=== PATIENT | male | born 1930 | race Caucasian/White ===

== ENCOUNTER 2016-04-20 14:57 | Outpatient (CLI) | payer MEDICARE, OTHER | END 2016-04-20 14:58 | disposition home or self-care (01) | DX: R05 Cough (principal); R09.89 Other specified symptoms and signs involving the circulatory and respiratory systems ==

== ENCOUNTER 2016-12-06 11:50 | Day surgery (SDC) | payer MEDICARE, OTHER ==
[2016-12-06] MEDS ORDERED: LACTATED RINGERS 1,000 ML IV ONE (12:32)
[2016-12-06] MEDS ORDERED: LIDOCAINE-MPF 2% 5 ML VIAL IM ONE (13:43)
[2016-12-06] MEDS ORDERED: MIDAZOLAM 2 MG/2 ML VIAL IVP ONE (13:43)
[2016-12-06] MEDS ORDERED: fentaNYL 100 MCG/2 ML VIAL IVP ONE (13:43)
[2016-12-06] MEDS ORDERED: PROPOFOL 200 MG/20 ML VIAL IVP ONE (13:43)
[2016-12-06] MEDS ORDERED: BUPIVACAINE 0.5% PF 30 ML VIAL SUBQ ONE ×2 (13:49)
[2016-12-06 14:39] VITALS: BP 131/56
--- NOTE | 2016-12-06 14:47 | OPERATIVE REPORT ---
DATE OF SURGERY: 12/06/2016 00:00:00 PREOPERATIVE DIAGNOSIS: Right hand carpal tunnel syndrome. POSTOPERATIVE DIAGNOSIS: Right hand carpal tunnel syndrome. NAME OF PROCEDURE: Right carpal tunnel release. SURGEON: Matt Harrington MD ANESTHESIA: Local, MAC by Juan Green CRNA. INDICATIONS FOR SURGERY: The patient is an 86-year-old male with progressive carpal tunnel syndrome w ho has failed bracing and conservative treatment and now presents for surgical release. DESCRIPTION OF OPERATIVE PROCEDURE: The patient was taken to the operating room on a gurney where his hand and arm were sterilely prepped and draped in standard fashion. He had been given IV sedation, a nd once a timeout was performed after draping, the patient received 5 mL of 1% lidocaine and 5 mL of 0.25% Marcaine with epinephrine as a carpal tunnel and soft tissue block at the wrist. After a delay of a few minutes, the surgery progressed with a longitudinal incision in the palm in line with the 3r d webspace taken through skin and subcutaneous tissue directly down to the transverse carpal ligament . This ligament was divided at its distal extent to the superficial palmar arch and at its proximal e xtent ending at the distal flexion crease of the wrist. This afforded adequate exposure and decompres jose c of the tunnel. The area was flushed and irrigated and the skin closed with interrupted 4-0 nylon suture. Sterile dressings were applied. The patient was taken to recovery room in stable condition. ESTIMATED BLOOD LOSS: Minimal. COMPLICATIONS: None. SPONGE AND NEEDLE COUNTS: Correct. JOB #: [id number] EXT JOB #:[id number]
== END 2016-12-06 11:51 | disposition home or self-care (01) ==
LOC: SDS 11:50 → MERGE 13:00
PROVIDERS: ATTEND Orthopaedic Surgery
PROC: 01N50ZZ Release Median Nerve, Open Approach (ICD-10-PCS; principal; 2016-12-06 13:00)
DX: G56.01 Carpal tunnel syndrome, right upper limb (principal); K21.9 Gastro-esophageal reflux disease without esophagitis; Z87.891 Personal history of nicotine dependence; Z79.82 Long term (current) use of aspirin
CPT/HCPCS: 64721; J7120

== ENCOUNTER 2017-05-22 08:00 | Outpatient (CLI) | payer MEDICARE, OTHER ==
[2017-05-22 12:21] LABS: BASOPHILS % (AUTO) 0.6 %; EOSINOPHILS # (AUTO) 0.5 10^3/uL (0.0-0.7); EOSINOPHILS % (AUTO) 7.5 %; HGB - HEMOGLOBIN 12.3 g/dL (14.0-18.0); LYMPHOCYTES # (AUTO) 0.8 10^3/uL (1.5-3.5); LYMPHOCYTES % (AUTO) 12.7 %; MEAN CORPUSCULAR HEMOGLOBIN 30.6 pg (27.0-31.0); MEAN CORPUSCULAR HGB CONC 33.3 g/dL (32.0-36.0); MEAN CORPUSCULAR VOLUME 91.9 fL (80.0-94.0); MEAN PLATELET VOLUME 7.9 fL (7.4-11.4); MONOCYTES # (AUTO) 0.6 10^3/uL (0.0-1.0); MONOCYTES % (AUTO) 10.1 %; NEUTROPHILS # (AUTO) 4.3 10^3/uL (1.5-6.6); NEUTROPHILS % (AUTO) 69.1 %; PLT - PLATELET COUNT 242 10^3/uL (130-450); RED BLOOD COUNT 4.02 10^6/uL (4.70-6.10); RED CELL DISTRIBUTION WIDTH 13.6 % (12.0-15.0); WHITE BLOOD COUNT 6.3 x10^3/uL (4.8-10.8)
[2017-05-22 12:28] LABS: ALBUMIN 3.9 g/dL (3.2-5.5); ALBUMIN/GLOBULIN RATIO 1.2 (1.0-2.2); ALKALINE PHOSPHATASE 80 IU/L (42-121); ALT ALANINE AMINOTRANSFERASE 10 IU/L (10-60); AST ASPARTATE AMINOTRANSFERASE 16 IU/L (10-42); BILIRUBIN,TOTAL 0.8 mg/dL (0.2-1.0); BUN - BLOOD UREA NITROGEN 20 mg/dL (6-20); CALCIUM 8.8 mg/dL (8.5-10.3); CARBON DIOXIDE - CO2 26 mmol/L (21-32); CHLORIDE 106 mmol/L (101-111); CHOLESTEROL 163 mg/dL; CREATININE 1.1 mg/dL (0.6-1.2); GFR - MDRD 63 (>89); GLUCOSE 85 mg/dL (70-100); HDL CHOLESTEROL 54 mg/dL; LDL CHOLESTEROL,CALCULATED 98 mg/dL; LDL/HDL RATIO 1.8 (<3.6); SODIUM 142 mmol/L (135-145); TOTAL PROTEIN 7.1 g/dL (6.7-8.2); VLDL CHOLESTEROL 11 mg/dL
== END 2017-05-22 08:01 | disposition home or self-care (01) ==
LOC: LAB.R 08:00
PROVIDERS: ATTEND Internal Medicine
DX: E78.5 Hyperlipidemia, unspecified (principal); M19.90 Unspecified osteoarthritis, unspecified site; I10 Essential (primary) hypertension; Z79.899 Other long term (current) drug therapy
CPT/HCPCS: 80053; 80061; 83721; 85025

== ENCOUNTER 2017-06-02 08:00 | Outpatient (CLI) | payer MEDICARE, OTHER ==
[2017-06-02 12:51] LABS: MEAN RETIC VALUE 118.7; RED BLOOD COUNT 4.1 10^6/uL (4.70-6.10)
[2017-06-02 13:27] LABS: FERRITIN 12.9 ng/mL (23.9-336.2)
== END 2017-06-02 08:01 | disposition home or self-care (01) ==
LOC: LAB.R 08:00
PROVIDERS: ATTEND Internal Medicine
DX: D64.9 Anemia, unspecified (principal)
CPT/HCPCS: 82607; 82728; 83010; 85044; 86880

== ENCOUNTER 2017-06-09 09:26 | Outpatient (CLI) | payer MEDICARE, OTHER ==
--- NOTE | 2017-06-13 09:13 | Ultrasound Report ---
CAROTID DUPLEX: 06/09/2017 CLINICAL INDICATION: Cerebrovascular disease. TECHNIQUE: Real-time sonographic vascular imaging was performed by the derrick builder through the carotid arteries utilizing both color-flow and Doppler spectral analysis. Multiple graphic art sales representative static images were saved for review. RIGHT Vessel PSV cm/sec EDV cm/sec ICA/CCA RSV Ratio Degree of Stenosis Plaque Estimate % RCCA Prox 71.6 RCCA Dist 51 13 RECA 471 RT BULB 186 32 3.64 CHLOE Prox 218 41 1.27 CHLOE Mid 205 41 4.01 CHLOE Dist 142 22 2.78 RVA 54 RVA flow direction: Antegrade LEFT Vessel PSV cm/sec EDV cm/sec ICA/CCA RSV Ratio Degree of Stenosis Plaque Estimate % LCCA Prox 51 LCCA Dist 39 11 LECA 99 LFT BULB 75 18 1.92 LICA Prox 96 26 2.49 LICA Mid 154 21 3.94 LICA Dist 103 17 2.64 LVA 69 LVA flow direction: Antegrade Velocity criteria are extrapolated from diameter data as defined by the Society of Radiologists in Ultrasound Consensus Conference Radiology 2003; 229; 340-346. Degree of Stenosis % ICA PSV cm/sec ICA EDV cm/sec ICA/CCA PSV Ratio Plaque Estimate % Normal < 125 < 40 < 2.0 None <50 < 125 <40 < 2.0 < 50 50-69 125-130 40-100 2.0-4.0 >/=50 >/=70 but less than near occlusion > 230 > 100 > 4.0 >/=50 Near occlusion High, low or undetectable Variable Variable Visible Total occlusion Undetectable Not applicable Not applicable No detectable lumen FINDINGS RIGHT: There is extensive plaquing in the right carotid bifurcation, producing greater than 70% luminal diameter narrowing of the proximal right internal carotid artery by velocity criteria. LEFT: There is extensive plaquing in the left carotid bifurcation, producing 50- 70% luminal diameter narrowing of the mid left internal carotid artery by velocity criteria. The vertebral arteries demonstrate antegrade flow bilaterally. IMPRESSION: RIGHT WORSE THAN LEFT CAROTID PLAQUING, PRODUCING GREATER THAN 70% LUMINAL DIAMETER NARROWING OF THE RIGHT INTERNAL CAROTID ARTERY, AND 50-70% LUMINAL DIAMETER NARROWING OF THE LEFT INTERNAL CAROTID ARTERY. MTDD
== END 2017-06-09 09:27 | disposition home or self-care (01) ==
LOC: DI 09:26
PROVIDERS: ATTEND Internal Medicine
DX: I65.23 Occlusion and stenosis of bilateral carotid arteries (principal)
CPT/HCPCS: 93880

== ENCOUNTER 2017-09-05 07:54 | Outpatient (CLI) | payer MEDICARE, OTHER ==
--- NOTE | 2017-09-05 15:45 | MRI Report ---
EXAM: MRI LUMBAR SPINE WITHOUT CONTRAST EXAM DATE: 09/05/2017 08:35 AM. CLINICAL HISTORY: Lumbar spinal stenosis. Weakness. Lower extremity pain. Difficulty walking. COMPARISON: No prior MRI. TECHNIQUE: Multiplanar, multisequence T1-weighted and fluid-sensitive sequences of the lumbar spine f rom T12 to S1 without contrast. Other: None. FINDINGS: Spinal Cord: The conus terminates at T12. Unremarkable-appearing conus medullaris. Alignment: Slight degenerative L3 on L4 retrolisthesis. Bone Marrow: Five xma-zoy-lpxocxu lumbar vertebral bodies are assumed. No acute vertebral body height loss. Degenerative endplate signal changes are most evident at L2-L3 and L3-L4 levels. Numerous dege nerative Schmorl's nodes. Minimal chronic anterior vertebral body height loss at T12 and L1. Diffuse anterior degenerative marginal spurring, most prominent at L10-C6-H2. Disk Levels/Facets: T12-L1: Mild chronic degenerative changes without significant stenosis. L1-L2: Tdae-hp-szgdyotp degenerative disk disease and moderate facet arthropathy. Diffuse annular dis k bulge. Ligamentum flavum thickening. Moderate central stenosis. Mild bilateral foraminal stenosis. L2-L3: Moderate facet arthropathy with ligamentum flavum thickening and moderate to severe degenerati ve disk disease with marginal spurring and diffuse annular disk bulge. Njsb-yp-hacdtrqs bilateral for aminal stenosis. Severe stenosis of the central canal and lateral recesses with potential for nerve r oot impingement. L3-L4: Moderate to marked degenerative disk disease and facet arthropathy with ligamentum flavum thic kening. Diffuse annular disk bulge and marginal spurring extending laterally into both foramina. Mode rate to severe bilateral foraminal stenosis. Severe stenosis of the central canal and lateral recesse s with probable nerve root impingement. L4-L5: Moderately prominent chronic degenerative disk disease and facet arthropathy. Diffuse annular disk bulge. Bulging annulus extends laterally with marginal spurring into both foramina. Foraminal st enosis is mild on the left and moderate to severe on the right. The central canal is patent, previous dorsal laminectomy decompression. L5-S1: Mild degenerative disk disease. Qtli-oo-voqbjldm facet arthropathy. Patent central canal and l ateral recesses. Prior dorsal laminectomy decompression. Bilateral intraforaminal and far lateral dis k protrusions with osteophyte. Foraminal stenosis appears severe on the right and at least moderate o n the left. Musculature: Prominent diffuse posterior paraspinal muscle fatty atrophy. Other: None. IMPRESSION: 1. Probable nerve root impingement from severe degenerative central canal and lateral recess stenosis at L2-L3 and L3-L4. 2. Patent central canal after previous surgical decompressions at L4-L5 and L5-S1. 3. Prominent multilevel degenerative foraminal stenosis, this is especially notable at L2-L3, right w orse than left at L3-L4, right greater than left at L4-L5 and right greater than left at L5-S1. Comment: The following findings are so common in adults without low back pain that while we report th eir presence, they must be interpreted with caution and in the context of the clinical situation. (Re kashif Anand et al, Spine 2001) Prevalence of findings in patients without low back pain: Disk degeneration (any evidence): 92% Disk desiccation/T2 signal loss: 83% Disk height loss: 56% Disk bulge: 64% Disk protrusion: 32% Annular tear/high intensity zone: 38% RADIA Referring Provider Line: [phone] SITE ID: [id number]
== END 2017-09-05 07:55 | disposition home or self-care (01) ==
LOC: DI 07:54
PROVIDERS: ATTEND Internal Medicine
DX: M51.36 Other intervertebral disc degeneration, lumbar region (principal); M48.061 Spinal stenosis, lumbar region without neurogenic claudication
CPT/HCPCS: 72148

== ENCOUNTER 2017-12-07 11:13 | Outpatient (CLI) | payer MEDICARE, OTHER ==
--- NOTE | 2017-12-07 12:35 | Ultrasound Report ---
Procedure Date: 12/07/2017 Accession Number: [id number] / [id number] Procedure: US - Ankle Brachial Index CPT Code: FULL RESULT: EXAM: ULTRASOUND ANKLE BRACHIAL INDEX EXAM DATE: 12/07/2017 11:46 AM. CLINICAL HISTORY: ATHSCL [place] ARTERIES OF EXTRM W INTRMT HONG, BI. COMPARISON: None. TECHNIQUE: Sonographic evaluation with grayscale, color-flow, and spectral Doppler techniques with ankle-brachial index. FINDINGS: Color flow with patency at the bilateral posterior tibial and dorsalis pedis arteries with pressures and waveforms as described below. Velocity and waveform (cm/sec): Right posterior tibial artery: 8, monophasic Right dorsalis pedis artery: 33, monophasic Left posterior tibial artery: 13, monophasic Left dorsalis pedis artery: 42, biphasic Pressures (mmHg): Right brachial: 154 Right posterior tibial artery: 103 Right WAI: 0.61 Left brachial: 170 Left posterior tibial artery: 126 Left WAI: 0.74 IMPRESSION: Calculated WAI consistent with peripheral arterial disease. RADIA
== END 2017-12-07 11:14 | disposition home or self-care (01) ==
LOC: DI 11:13
PROVIDERS: ATTEND Physical Medicine & Rehabilitation
DX: I70.213 Atherosclerosis of native arteries of extremities with intermittent claudication, bilateral legs (principal); M48.061 Spinal stenosis, lumbar region without neurogenic claudication
CPT/HCPCS: 93922

== ENCOUNTER 2018-04-24 16:46 | Emergency (ER) | payer MEDICARE, OTHER ==
[2018-04-24] MEDS ORDERED: BACITRACIN OINT TOP STA (17:32)
--- NOTE | 2018-04-24 17:37 | ED Physician Documentation ---
PD HPI UPPER EXT INJURY - Stated complaint Stated Complaint: L ELBOW/SHOULDER INJ - Chief complaint Chief Complaint: Ext Problem - History obtained from History obtained from: Patient, Family () - History of Present Illness Location: Left, Elbow Type of injury: Fall Where injury occurred: Other (ferry) Timing - onset: Today Timing - duration: Days (1) Timing - details: Abrupt onset Pain level max: 4 Pain level now: 1 Improved by: Rest Worsened by: Moving, Palpating Associated symptoms: No: Weakness, Numbness, Tingling, Swelling, Discolored Contributing factors: Anticoagulated (plavix) - Additonal information Additional information: [place] elbow [place] Also has an abrasion. Patient does take Plavix. No head, neck or back injury. Review of Systems Constitutional: denies: Fever, Chills Respiratory: denies: Cough GI: denies: Vomiting, Diarrhea Skin: denies: Rash Musculoskeletal: denies: Neck pain, Back pain Neurologic: denies: Focal weakness, Numbness, Confused, Altered mental status, Headache, Head injury, LOC PD PAST MEDICAL HISTORY - Past Medical History Cardiovascular: Hypertension Respiratory: None Endocrine/Autoimmune: None GI: GERD, Other : Benign prostate hypertrophy, None HEENT: Chronic hearing loss, Chronic vision loss, Glaucoma, Other Psych: None Musculoskeletal: None, Osteoarthritis Derm: None - Past Surgical History Past Surgical History: Yes General: Colonoscopy Ortho: Knee replacement, Rotator cuff repair, Spine surgery, Arthroscopic surgery HEENT: Cataracts - Present Medications Home Medications: Ambulatory Orders Medication Instructions Recorded Confirmed Aspirin [Aspirin EC] 81 mg PO DAILY 12/01/16 12/01/16 Celecoxib [Celebrex] 200 mg PO DAILY 12/01/16 12/06/16 Losartan Potassium 25 mg PO BID 12/01/16 12/06/16 Lutein/Zeaxanthin [Ocuvite Lutein 1 each PO DAILY 12/01/16 12/06/16 25-5 mg Softgel] amLODIPine [Norvasc] 2.5 mg PO BID 12/01/16 12/06/16 Clopidogrel [Plavix] 75 mg PO DAILY 04/24/18 04/24/18 Ipratropium [place] 15 ml NS 04/24/18 Omeprazole 20 mg PO 04/24/18 04/24/18 - Allergies Allergies/Adverse Reactions: Allergies Allergy/AdvReac Type Severity Reaction Status Date / Time codeine [Codeine] Allergy "loopy" Verified 04/24/18 16:53 oxycodone [Oxycodone] Allergy Unknown Unverified 04/24/18 16:53 - Social History Does the pt smoke?: Yes Smoking Status: Current every day smoker Does the pt drink ETOH?: Yes Does the pt have substance abuse?: No PD ED PE NORMAL - Vitals Vital signs reviewed: Yes - General General: Alert and oriented X 3 - HEENT HEENT: Atraumatic, PERRL, Moist mucous membranes - Neck Neck: Supple, no meningeal sign, No bony TTP - Cardiac Cardiac: RRR, Strong equal pulses - Respiratory Respiratory: No respiratory distress, Clear bilaterally - Abdomen Abdomen: Soft, Non tender, Non distended - Back Back: No spinal TTP - Derm Derm: Warm and dry - Extremities Extremities: Normal ROM s pain, Other (Abrasion to the left elbow. Mild tenderness at the olecranon process. Full range of motion present. Neurovascularly intact. No tenderness over the left shoulder. Full range of motion without pain.) - Neuro Neuro: Alert and oriented X 3, business transformation manager 2-12 intact. No: No motor deficit, No sensory deficit Results - Vitals Vitals: Oxygen O2 Source Room air - Rads (name of study) Left elbow x-ray Radiology: Prelim report reviewed, EMP read contemporaneously, See rad report (No acute abnormality) PD MEDICAL DECISION MAKING - ED course Complexity details: reviewed results, re-evaluated patient, considered differential, d/w patient ED course: 87-year-old male with a left elbow contusion and abrasion. Wounds were cleansed and bandaged. Tetanus is up-to-date. Negative x-ray. Patient and family counseled regarding signs and symptoms for which I believe and urgent re- evaluation would be necessary. Patient with good understanding of and agreement to plan and is comfortable going home at this time This document was made in part using voice recognition software. While efforts are made to proofread this document, sound alike and grammatical errors may occur. Departure - Departure Disposition: Home, Self Care Clinical Impression: Elbow abrasion Qualifiers: Encounter type: initial encounter Laterality: left Qualified Code(s): S50.312A - Abrasion of left elbow, initial encounter Elbow contusion Qualifiers: Encounter type: initial encounter Laterality: left Qualified Code(s): S50.02XA - Contusion of left elbow, initial encounter Condition: Good Instructions: ED Contusion Elbow Follow-Up: Karthikeyan Mohr MD [Primary Care Provider] - Within 1 week Comments: Return if you worsen. Keep the wound clean. Follow-up with your doctor in 1 week for a wound check. Discharge Date/Time: 04/24/18 18:03
--- NOTE | 2018-04-24 17:37 | XRAY Report ---
Reason: GLF, swelling and bruising Procedure Date: 04/24/2018 Accession Number: [id number] / [id number] Procedure: XR - Elbow 3 View LT CPT Code: FULL RESULT: EXAM: LEFT ELBOW RADIOGRAPHY EXAM DATE: 04/24/2018 05:10 PM. CLINICAL HISTORY: GLF, swelling and bruising. COMPARISON: None. TECHNIQUE: 3 views. FINDINGS: Bones: Moderate to large olecranon spur. No definite fracture or other bone lesion. Joints: Fat pads not distended. Soft Tissues: Prominent soft tissue swelling posterior to proximal ulna. Soft tissue calcifications adjacent to the epicondyles, more lateral than medial. IMPRESSION: 1. Soft tissue swelling. 2. 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 RADIA
[2018-04-24 17:49] VITALS: BP 136/58
== END 2018-04-24 18:03 | disposition home or self-care (01) ==
LOC: ED 16:46
DX: S50.312A Abrasion of left elbow, initial encounter (principal); S50.02XA Contusion of left elbow, initial encounter; W19.XXXA Unspecified fall, initial encounter; Y92.89 Other specified places as the place of occurrence of the external cause; I10 Essential (primary) hypertension; Z96.659 Presence of unspecified artificial knee joint; Z79.82 Long term (current) use of aspirin; F17.200 Nicotine dependence, unspecified, uncomplicated; Z79.01 Long term (current) use of anticoagulants
CPT/HCPCS: 99283

== ENCOUNTER 2018-07-10 06:08 | Day surgery (SDC) | payer MEDICARE, OTHER ==
[2018-07-10] MEDS ORDERED: LACTATED RINGERS 1,000 ML IV ONE (06:19)
--- NOTE | 2018-07-10 07:04 | ANESTHESIA ---
Pre-Anesthesia VS, & Labs - Diagnosis L CTS, L middle finger triggering - Procedure L CTR, L middle finger trigger release Vital Signs: Temp Pulse Resp BP Pulse Ox 36.3 C L 86 17 148/61 H 99 07/10/18 06:35 07/10/18 06:35 07/10/18 06:35 07/10/18 06:35 07/10/18 06:35 Height 5 ft 6 in Weight (kg) 83 kg Body Mass Index 27.6 Home Medications and Allergies Home Medications: Ambulatory Orders Aspirin [Aspirin EC] 81 mg PO DAILY 06/26/18 Rosuvastatin Calcium 10 mg PO QPM 06/26/18 Celecoxib [Celebrex] 200 mg PO DAILY 12/01/16 Losartan Potassium 50 mg PO BID 12/01/16 amLODIPine [Norvasc] 5 mg PO BID 12/01/16 Clopidogrel [Plavix] 75 mg PO DAILY 04/24/18 Omeprazole 20 mg PO BID 04/24/18 Aspirin [Aspirin EC] 81 mg PO DAILY 06/26/18 Rosuvastatin Calcium 10 mg PO QPM 06/26/18 Allergies/Adverse Reactions: Allergies Allergy/AdvReac Type Severity Reaction Status Date / Time codeine [Codeine] Allergy "loopy" Verified 04/24/18 16:53 oxycodone [Oxycodone] Allergy Hallucinati Unverified 06/26/18 14:49 ons Anes History & Medical History - Anesthetic History Anesthesia Complications: reports: No previous complications Family history of Anesthesia Complications: Denies Family history of Malignant Hyperthermia: Denies - Medical History Cardiovascular: reports: Hypertension Pulmonary: reports: None Gastrointestinal: reports: GERD Urinary: reports: None Musculoskeletal: reports: Osteoarthritis Endocrine/Autoimmune: reports: None Skin: reports: None Smoking Status: Current every day smoker - Surgical History General: Colonoscopy, EGD, Other Eyes Ears Nose Throat (EENT): Cataracts Orthopedic: Knee replacement, Rotator cuff repair, Spine surgery, Arthroscopic surgery Exam General: Alert, Oriented x3, Cooperative Dental: WNL, Loose/Frag (some chipped at upper right) Mouth Openin Fingerbreadth Neck Mobility: Normal Mallampati classification: II Respiratory: Lungs clear Cardiovascular: Regular rate Neurological: Normal gait Plan Anesthesia Type: MAC Consent for Procedure(s) Verified and Reviewed: Yes Code Status: Attempt Resuscitation ASA classification: 2-Mild systemic disease Is this case an emergency?: No
[2018-07-10] MEDS ORDERED: BUPIVACAINE 0.25% PF 10 ML VIAL ONE (07:29)
[2018-07-10] MEDS ORDERED: PROPOFOL 200 MG/20 ML VIAL IVP ONE (07:30)
[2018-07-10] MEDS ORDERED: MIDAZOLAM 2 MG/2 ML VIAL IVP ONE (07:30)
[2018-07-10] MEDS ORDERED: KETAMINE 500 MG/10 ML VIAL IVP ONE (07:30)
[2018-07-10] MEDS ORDERED: LIDOCAINE 1%-EPI 1:100000 20 ML MDV SUBQ ONE ×2 (07:52)
[2018-07-10] MEDS ORDERED: ONDANSETRON 4 MG/2 ML VIAL IVP PRN (08:15)
[2018-07-10] MEDS ORDERED: HYDROcod/ACETAM 5/325 MG TABLET PO PRN (08:15)
[2018-07-10 08:45] VITALS: BP 152/76
--- NOTE | 2018-07-10 13:07 | OPERATIVE REPORT ---
DATE OF SERVICE: 07/10/2018 Physician: Matt Harrington MD PREOPERATIVE DIAGNOSIS: Left carpal tunnel syndrome and left trigger middle finger. POSTOPERATIVE DIAGNOSIS: Left carpal tunnel syndrome and left trigger middle finger. PROCEDURE PERFORMED: Left carpal tunnel release and a release of left middle finger trigger finger. OPERATING SURGEON: Matt Harrington MD ANESTHESIA: Dennis Yoder: IV regional and local. INDICATIONS FOR SURGERY: Patient is an 87-year-old male with chronic carpal tunnel syndrome of his left hand who has also developed triggering of his left middle finger. He has responded favorably to a prior right carpal tunnel release, and he actually desired and was consented for left carpal tunnel release and trigger release. FINDINGS AT SURGERY: The patient's carpal tunnel was tight, but there were no significant changes in the tunnel itself. The nerve appeared intact. The patient's A1 sandra of the left middle finger had synovitis around the area, and it was hypertrophic. DESCRIPTION OF OPERATIVE PROCEDURE: The patient was taken to the operating room. He was given IV sedation anesthesia after a surgical timeout. He was given a carpal tunnel block and a block at the base of the middle finger. These blocks were a sparse amount of local medicine at the A1 sandra utilizing 0.25% Marcaine with epinephrine mixed with 1% lidocaine. This was not a digital or ring block. The same syringe was then used to inject into the carpal tunnel with about 7-8 mL of this same block. Once he was anesthetized, a distal transverse incision was made in the distal palmar crease, and dissecting down to A1 sandra allowed exposure of the tendon and direct surgical release. The wound was irrigated. Then the carpal tunnel release was done with a 1-1/2-inch incision in the palm in line with the third web, taken through skin and subcutaneous tissue, exposing transverse carpal ligament fibers, which were divided in line with the incision. That release extended from the distal flexion crease of the wrist to the superficial arch in the palm. It was irrigated and also closed with interrupted 4-0 nylon suture, as was the trigger finger wound and soft dressings were applied. The patient was taken to the recovery room in stable condition. ESTIMATED BLOOD LOSS: Minimal. COMPLICATIONS: None. SPONGE AND NEEDLE COUNTS: Correct. TD: 07/10/2018 12:31 REVISED 07/15/2018 celestino Trxn flag removed Orig. signed 07/11/2018@1254 MTDD
== END 2018-07-10 06:09 | disposition home or self-care (01) ==
LOC: SDS 06:08
PROVIDERS: ATTEND Orthopaedic Surgery
PROC: 0LN80ZZ Release Left Hand Tendon, Open Approach (ICD-10-PCS; principal; 2018-07-10 07:30)
PROC: 01N50ZZ Release Median Nerve, Open Approach (ICD-10-PCS; 2018-07-10 07:30)
DX: G56.02 Carpal tunnel syndrome, left upper limb (principal); M65.332 Trigger finger, left middle finger; I10 Essential (primary) hypertension; K21.9 Gastro-esophageal reflux disease without esophagitis; M19.90 Unspecified osteoarthritis, unspecified site; F17.200 Nicotine dependence, unspecified, uncomplicated; G89.29 Other chronic pain; M54.9 Dorsalgia, unspecified; M10.9 Gout, unspecified; R13.10 Dysphagia, unspecified; H91.90 Unspecified hearing loss, unspecified ear; Z87.891 Personal history of nicotine dependence; Z79.82 Long term (current) use of aspirin; Z79.01 Long term (current) use of anticoagulants
CPT/HCPCS: 26055; 64721; J7120

== ENCOUNTER 2018-07-31 16:35 | Outpatient (CLI) | payer MEDICARE, OTHER ==
[2018-07-31 17:13] LABS: BASOPHILS # (AUTO) 0.1 10^3/uL (0.0-0.1); BASOPHILS % (AUTO) 0.8 %; EOSINOPHILS # (AUTO) 0.3 10^3/uL (0.0-0.7); EOSINOPHILS % (AUTO) 4.6 %; HGB - HEMOGLOBIN 7.2 g/dL (14.0-18.0); LYMPHOCYTES # (AUTO) 0.8 10^3/uL (1.5-3.5); LYMPHOCYTES % (AUTO) 12.4 %; MEAN CORPUSCULAR HEMOGLOBIN 27.6 pg (27.0-31.0); MEAN CORPUSCULAR HGB CONC 31.8 g/dL (32.0-36.0); MEAN CORPUSCULAR VOLUME 86.8 fL (80.0-94.0); MEAN PLATELET VOLUME 7.1 fL (7.4-11.4); MONOCYTES # (AUTO) 0.7 10^3/uL (0.0-1.0); MONOCYTES % (AUTO) 10.5 %; NEUTROPHILS # (AUTO) 4.6 10^3/uL (1.5-6.6); NEUTROPHILS % (AUTO) 71.7 %; PLT - PLATELET COUNT 236 10^3/uL (130-450); RED BLOOD COUNT 2.62 10^6/uL (4.70-6.10); RED CELL DISTRIBUTION WIDTH 16.6 % (12.0-15.0); WHITE BLOOD COUNT 6.4 x10^3/uL (4.8-10.8)
[2018-07-31 17:21] LABS: ALBUMIN 3.6 g/dL (3.2-5.5); ALBUMIN/GLOBULIN RATIO 1.2 (1.0-2.2); BILIRUBIN,TOTAL 0.6 mg/dL (0.2-1.0); CALCIUM 8.6 mg/dL (8.5-10.3); CREATININE 1.2 mg/dL (0.6-1.2); TOTAL PROTEIN 6.5 g/dL (6.7-8.2)
[2018-07-31 18:12] LABS: THYROID STIMULATING HORMONE 2.48 uIU/mL (0.34-5.60)
[2018-07-31 18:14] LABS: FREE T4 (FREE THYROXINE) 0.81 ng/dL (0.58-1.64)
--- NOTE | 2018-08-01 07:59 | XRAY Report ---
Reason: EXERTIONAL DYSPNEA,FATIGUE AND MALAISE Procedure Date: 07/31/2018 Accession Number: [id number] / [id number] Procedure: XR - Chest 2 View X-Ray CPT Code: 41756 FULL RESULT: EXAM: CHEST RADIOGRAPHY EXAM DATE: 07/31/2018 05:42 PM. CLINICAL HISTORY: Shortness of breath. COMPARISON: CHEST 2 VIEW PA/LAT 04/20/2016 3:17 PM. CHEST 2 VIEW PA/LAT 07/27/2015 3:29 PM. TECHNIQUE: 2 views. FINDINGS: Lungs/Pleura: Slightly coarse lung markings are seen which may be related to chronic scarring. A potential new 1.5 cm density is seen along the peripheral left mid to upper lung region. The lungs are otherwise clear. No pleural effusion. No pneumothorax. Normal volumes. Mediastinum: Heart and mediastinal contours are unremarkable. Other: None. IMPRESSION: 1. Potentially new 1.5 cm peripheral pulmonary density along the left mid to upper lung region. Underlying pulmonary nodule is not excluded. Correlation with chest CT could be helpful in further evaluation. 2. Stable slightly coarse lung markings likely related to minor scarring/interstitial changes. RADIA
== END 2018-07-31 16:36 | disposition home or self-care (01) ==
LOC: LAB 16:35 → DI 16:36
PROVIDERS: ATTEND Family Medicine
DX: R06.00 Dyspnea, unspecified (principal); R53.83 Other fatigue; D64.9 Anemia, unspecified; I10 Essential (primary) hypertension
CPT/HCPCS: 71046; 80053; 83880; 84439; 84443; 84481; 85025

== ENCOUNTER 2018-08-09 10:42 | Outpatient (CLI) | payer MEDICARE, OTHER ==
--- NOTE | 2018-08-09 13:41 | CT Report ---
Reason: COIN LESION OF LUNG, EXERTIONAL DYSPNEA, ANEMIA Procedure Date: 08/09/2018 Accession Number: [id number] / [id number] Procedure: CT - CHEST WO CPT Code: FULL RESULT: EXAM: CT CHEST EXAM DATE: 08/09/2018 11:00 AM. CLINICAL HISTORY: [place] lesion of lung, exertional dyspnea, anemia. COMPARISONS: CHEST W/ 03/10/2015 9:35 AM. CHEST 2 VIEW 07/31/2018 5:30 PM. TECHNIQUE: Routine helical CT imaging was performed through the chest. IV contrast: None. Reconstructions: Coronal and sagittal. In accordance with CT protocol optimization, one or more of the following dose reduction techniques were utilized for this exam: automated exposure control, adjustment of mA and/or KV based on patient size, or use of iterative reconstructive technique. FINDINGS: Lungs/Pleura: The radiographic finding is identified as irregular nodular pleural-based consolidation in the lateral left upper lobe which measures 2.0 x 1.3 cm on image 24 series 4. Separately, previously demonstrated scant nodular thickening of the anterior pleura of the left lower lobe is seen on image 28 series 4, similar to prior. Mediastinum: Moderate to severe three-vessel coronary calcifications. Aorta is moderately atherosclerotic. Heart is normal for size. There is no pericardial effusion. There is no mediastinal lymphadenopathy. Hilar lymph nodes are difficult to assess, suggestion of 1.8 x 2.0 right hilar lymph node, see image 37 series 4 and image 30 series 6. Bones: No definite aggressive osseous lesions are detected. Visualized Abdomen: Unremarkable. Other: None. IMPRESSION: Development of nodular mass-like consolidation in the area of pleural-based thickening seen previously is suspicious for malignancy. RADIA
== END 2018-08-09 10:43 | disposition home or self-care (01) ==
LOC: DI 10:42
PROVIDERS: ATTEND Family Medicine
DX: R91.1 Solitary pulmonary nodule (principal); R06.09 Other forms of dyspnea; D64.9 Anemia, unspecified
CPT/HCPCS: 71250

== ENCOUNTER 2018-08-09 10:43 | Outpatient (CLI) | payer MEDICARE, OTHER | END 2018-08-09 10:44 | disposition home or self-care (01) | LOC: DI 10:43 | PROVIDERS: ATTEND Family Medicine | DX: R06.09 Other forms of dyspnea (principal); R53.83 Other fatigue; R91.1 Solitary pulmonary nodule; D64.9 Anemia, unspecified | CPT/HCPCS: 71250; 93306 ==

== ENCOUNTER 2018-08-15 10:09 | Outpatient (CLI) | payer MEDICARE, OTHER ==
[2018-08-15 10:43] LABS: ABSOLUTE RETICS # AUTO 0.105 10^6/uL (0.020-0.110); BASOPHILS % (AUTO) 0.6 %; EOSINOPHILS # (AUTO) 0.3 10^3/uL (0.0-0.7); EOSINOPHILS % (AUTO) 3.4 %; HGB - HEMOGLOBIN 8.4 g/dL (14.0-18.0); LYMPHOCYTES # (AUTO) 1.1 10^3/uL (1.5-3.5); LYMPHOCYTES % (AUTO) 14.6 %; MEAN CORPUSCULAR HEMOGLOBIN 26.8 pg (27.0-31.0); MEAN CORPUSCULAR HGB CONC 30.4 g/dL (32.0-36.0); MEAN PLATELET VOLUME 7.4 fL (7.4-11.4); MEAN RETIC VALUE 116.1; MONOCYTES # (AUTO) 0.7 10^3/uL (0.0-1.0); MONOCYTES % (AUTO) 9.8 %; NEUTROPHILS # (AUTO) 5.4 10^3/uL (1.5-6.6); NEUTROPHILS % (AUTO) 71.6 %; PLT - PLATELET COUNT 319 10^3/uL (130-450); RED BLOOD COUNT 3.12 10^6/uL (4.70-6.10); RED CELL DISTRIBUTION WIDTH 17.7 % (12.0-15.0); WHITE BLOOD COUNT 7.6 x10^3/uL (4.8-10.8)
== END 2018-08-15 10:10 | disposition home or self-care (01) ==
LOC: LAB 10:09
PROVIDERS: ATTEND Family Medicine
DX: D64.9 Anemia, unspecified (principal)
CPT/HCPCS: 36415; 85025; 85044

== ENCOUNTER 2018-08-29 09:01 | Outpatient (CLI) | payer MEDICARE, OTHER ==
[2018-08-29 09:29] LABS: ABSOLUTE RETICS # AUTO 0.094 10^6/uL (0.020-0.110); BASOPHILS % (AUTO) 0.6 %; EOSINOPHILS # (AUTO) 0.3 10^3/uL (0.0-0.7); EOSINOPHILS % (AUTO) 4.9 %; HGB - HEMOGLOBIN 9.8 g/dL (14.0-18.0); LYMPHOCYTES # (AUTO) 0.5 10^3/uL (1.5-3.5); LYMPHOCYTES % (AUTO) 9.2 %; MEAN CORPUSCULAR HEMOGLOBIN 27.2 pg (27.0-31.0); MEAN CORPUSCULAR VOLUME 87.7 fL (80.0-94.0); MEAN RETIC VALUE 116.6; MONOCYTES # (AUTO) 0.5 10^3/uL (0.0-1.0); MONOCYTES % (AUTO) 8.7 %; NEUTROPHILS # (AUTO) 4.3 10^3/uL (1.5-6.6); NEUTROPHILS % (AUTO) 76.6 %; PLT - PLATELET COUNT 245 10^3/uL (130-450); RED CELL DISTRIBUTION WIDTH 18.1 % (12.0-15.0); WHITE BLOOD COUNT 5.7 x10^3/uL (4.8-10.8)
[2018-08-29 09:48] LABS: % IRON SATURATION 99 % (20-50); IRON 337 ug/dL (45-182); TOTAL IRON BINDING CAPACITY 339 ug/dL (250-450); TRANSFERRIN 242 mg/dL (180-329)
[2018-08-29 10:03] LABS: FERRITIN 13.4 ng/mL (23.9-336.2)
[2018-08-29 10:50] LABS: FOLATE > 49.60 ng/mL (5.90 - >24.8)
== END 2018-08-29 09:02 | disposition home or self-care (01) ==
LOC: LAB 09:01
PROVIDERS: ATTEND Family Medicine
DX: D64.9 Anemia, unspecified (principal)
CPT/HCPCS: 36415; 82607; 82728; 82746; 83540; 84466; 85025; 85027; 85044

== ENCOUNTER 2018-08-31 08:00 | Outpatient (CLI) | payer MEDICARE, OTHER | END 2018-08-31 23:59 | disposition home or self-care (01) | LOC: LAB.R 08:00 | PROVIDERS: ATTEND Family Medicine | DX: D64.9 Anemia, unspecified (principal) | CPT/HCPCS: 82274 ==

== ENCOUNTER 2018-10-02 15:53 | Outpatient (CLI) | payer MEDICARE, OTHER | END 2018-10-02 15:54 | disposition home or self-care (01) | LOC: LAB 15:53 | PROVIDERS: ATTEND Nurse Practitioner | DX: E03.9 Hypothyroidism, unspecified (principal) | CPT/HCPCS: 36415; 84443 ==

== ENCOUNTER 2018-12-25 11:56 | Outpatient (CLI) | payer MEDICARE, OTHER ==
[2018-12-25 12:27] LABS: ABSOLUTE RETICS # AUTO 0.124 10^6/uL (0.020-0.110); BASOPHILS % (AUTO) 0.3 %; EOSINOPHILS # (AUTO) 0.2 10^3/uL (0.0-0.7); EOSINOPHILS % (AUTO) 1.7 %; HGB - HEMOGLOBIN 9.8 g/dL (14.0-18.0); LYMPHOCYTES # (AUTO) 0.9 10^3/uL (1.5-3.5); LYMPHOCYTES % (AUTO) 9.2 %; MEAN CORPUSCULAR HEMOGLOBIN 30.5 pg (27.0-31.0); MEAN CORPUSCULAR HGB CONC 31.6 g/dL (32.0-36.0); MEAN CORPUSCULAR VOLUME 96.6 fL (80.0-94.0); MEAN PLATELET VOLUME 9.4 fL (7.4-11.4); MONOCYTES # (AUTO) 0.7 10^3/uL (0.0-1.0); MONOCYTES % (AUTO) 7.7 %; NEUTROPHILS # (AUTO) 7.8 10^3/uL (1.5-6.6); NEUTROPHILS % (AUTO) 80.6 %; PLT - PLATELET COUNT 297 10^3/uL (130-450); RED BLOOD COUNT 3.21 10^6/uL (4.70-6.10); RED CELL DISTRIBUTION WIDTH 14.6 % (12.0-15.0); WHITE BLOOD COUNT 9.6 x10^3/uL (4.8-10.8)
[2018-12-25 12:37] LABS: CALCIUM 8.7 mg/dL (8.5-10.3); CREATININE 1.2 mg/dL (0.6-1.2)
[2018-12-25 13:27] LABS: THYROID STIMULATING HORMONE 1.47 uIU/mL (0.34-5.60)
[2018-12-25 13:29] LABS: FREE T4 (FREE THYROXINE) 0.75 ng/dL (0.58-1.64)
== END 2018-12-25 11:57 | disposition home or self-care (01) ==
LOC: LAB 11:56
PROVIDERS: ATTEND Family Medicine
DX: D64.9 Anemia, unspecified (principal); E03.9 Hypothyroidism, unspecified
CPT/HCPCS: 36415; 80048; 84439; 84443; 84481; 85025; 85044

== ENCOUNTER 2019-03-28 13:00 | Outpatient (CLI) | payer MEDICARE, OTHER ==
--- NOTE | 2019-03-28 16:10 | XRAY Report ---
Reason: COUGH,ADENOCARCIMONA,LUNG NONSM CELL Procedure Date: 03/28/2019 Accession Number: [id number] / [id number] Procedure: XR - Chest 2 View X-Ray CPT Code: 90036 Final Report FULL RESULT: EXAM: CHEST RADIOGRAPHY EXAM DATE: 03/28/2019 01:20 PM. CLINICAL HISTORY: Cough for 3 weeks. History of non-small cell lung cancer. COMPARISON: CHEST 2 VIEW 07/31/2018 5:30 PM CHEST W/O 08/09/2018 10:56 AM. TECHNIQUE: 2 views. FINDINGS: Lungs/Pleura: Stable small pleural-based opacity, lateral left upper lobe, otherwise no focal opacities evident. No pleural effusion. No pneumothorax. Normal volumes. Mediastinum: Heart and mediastinal contours are unremarkable. Calcified aortic arch. Other: None. IMPRESSION: No acute pulmonary disease, noting stable pleural-based opacity, lateral left upper lobe. RAD[facility]
== END 2019-03-28 13:01 | disposition home or self-care (01) ==
LOC: DI 13:00
PROVIDERS: ATTEND Family Medicine
DX: R05 Cough (principal); C34.90 Malignant neoplasm of unspecified part of unspecified bronchus or lung
CPT/HCPCS: 71046

== ENCOUNTER 2019-05-22 08:53 | Outpatient (CLI) | payer MEDICARE, OTHER ==
--- NOTE | 2019-05-22 11:16 | MRI Report ---
Reason: DYSPHAGIA, ADENOCARCIMONA LUNG NONSMALL CELL Procedure Date: 05/22/2019 Accession Number: [id number] / [id number] Procedure: MRI - Cervical Spine W/O CPT Code: Final Report FULL RESULT: EXAM: MRI CERVICAL SPINE WITHOUT CONTRAST EXAM DATE: 05/22/2019 09:52 AM. CLINICAL HISTORY: Dysphagia, adenocarcinoma, lung [id number]. COMPARISONS: None. TECHNIQUE: Multiplanar, multisequence T1-weighted and fluid-sensitive sequences of the cervical spine without contrast. Other: None. FINDINGS: Neurologic Structures: The visualized posterior fossa structures are unremarkable. No signal abnormality in the visualized spinal cord. 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 Alignment: No scoliosis or spondylolisthesis. Bone Marrow: No gross fractures or bone lesions. No marrow edema. Interspace Levels/Facets: C1-C2: Mild thickening of posterior transalar ligaments is seen. No stenosis. C2-C3: Osseous fusion is seen anteriorly and posterior laterally. Narrowing with peripheral disk space osseous fusion is present. Diffuse osseous fusion of facet joints is noted. C3-C4: T2 hypointense disk signal is present. Moderate dorsal and left dorsolateral disk protrusion. Left-sided hypertrophic degenerative uncovertebral change. Moderate anterior protrusion of disk/osteophyte complex. Effacement and flattening of the thecal sac and spinal cord is present. Moderate to marked canal stenosis. Marked left foraminal stenosis. C4-C5: T2 hypointense disk signal is seen. Mild central dorsal disk bulge. Marked anterior protrusion of disk/osteophyte complex. Effacement and anterior concavity to the thecal sac and spinal cord is seen. This is superimposed upon congenitally shallow canal with mild to moderate canal stenosis. C5-C6: Mild broad-based dorsal subligamentous disk protrusion is seen. Mild degenerative uncovertebral change is seen. Mild ventral protrusion of disk/osteophyte complex. Effacement and flattening of the thecal sac and spinal cord is noted. Moderate canal stenosis. Moderate left foraminal stenosis. C6-C7: Unremarkable. Mild anterior osteophyte formation. C7-T1: Mild right foraminal disk protrusion. Mass effect on exiting right C8 nerve root is seen with mild foraminal stenosis. T1-T2: Moderate to marked right anterolateral osteophyte formation. No stenosis. Musculature: Normal. No edema or fatty atrophy. Other: The paravertebral and prevertebral soft tissues are normal. IMPRESSION: 1. 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 Superimposed spondylosis and stenosis is present. 2. C2-C3: Osseous fusion anteriorly and posterolaterally. 3. C3-C4: Degenerative disk and left-sided degenerative uncovertebral change. Moderate to marked canal stenosis. Left marked foraminal stenosis. 4. C4-C5: Degenerative disk change. Mild to moderate canal stenosis. 5. C5-C6: Degenerative disk change. Moderate canal stenosis. Moderate left foraminal stenosis. 6. C7-T1: Degenerative disk change. Right mild foraminal stenosis. RADIA
--- NOTE | 2019-05-22 12:10 | MRI Report ---
Reason: DYSPHAGIA, ADENOCARCIMONA LUNG NONSMALL CELL Procedure Date: 05/22/2019 Accession Number: [id number] / [id number] Procedure: MRI - Thoracic Spine W/O CPT Code: Final Report FULL RESULT: EXAM: MRI THORACIC SPINE WITHOUT CONTRAST EXAM DATE: 05/22/2019 10:44 AM. CLINICAL HISTORY: Dysphagia, adenocarcinoma lung nonsmall cell. COMPARISONS: MRI CERVICAL SPINE W/O 05/22/2019 9:18 AM. XR CHEST 2 VIEW 03/28/2019 1:14 PM. MRI LUMBAR SPINE W/O 09/05/2017 8:00 AM. TECHNIQUE: Multiplanar, multisequence T1-weighted and fluid-sensitive sequences of the thoracic spine from C7 to L1 without contrast. Other: None. FINDINGS: Spinal Canal: No signal abnormality in the visualized spinal cord. The thoracic spinal canal is mildly diffusely congenitally shallow. The conus medullaris terminates at the T12 level. Alignment: No scoliosis or spondylolisthesis. Bone Marrow: No gross fractures or bone lesion. No bone marrow replacement. Disk Levels/Facets: Spondylosis is seen throughout the mid and lower thoracic spine. Diskogenic endplate irregularity is present. Mild multilevel patchy anterior and anterolateral osteophyte formation is seen greater to the right. Mild scattered degenerative facet changes seen throughout the upper and mid thoracic spine. C7-T1: See report of MRI of cervical spine performed same day. T1-T2: Unremarkable. T2-T3: Unremarkable. T3-T4: Unremarkable. T4-T5: Unremarkable. T5-T6: Unremarkable. T6-T7: Unremarkable. T7-T8: Unremarkable. T8-T9: Unremarkable. T9-T10: Unremarkable. T10-T11: Unremarkable. T11-T12: Unremarkable. T12-L1: Unremarkable. L1-L2: Mild dorsal and circumferential disk protrusion. Effacement of the thecal sac is noted with crowding of cauda equina nerve roots. Mild canal stenosis. Musculature: Normal. No edema or fatty atrophy. Other: Ill-defined wedge-shaped peripheral patchy consolidation is seen laterally in the left upper lung zone. Trace left pleural effusion is evident. Note is made of small amount of inspissated mucus in the distal trachea posterolaterally to the right. IMPRESSION: 1. Congenitally shallow thoracic spinal canal. 2. No intrinsic signal abnormality is seen within the thoracic spinal cord. No canal or foraminal stenosis. 3. Scattered spondylosis is seen throughout the thoracic spine. No abnormal bone marrow replacement or edema is seen. 4. Wedge-shaped focus of ill-defined consolidation laterally in the left upper lung zone. This could be further evaluated with chest CT. RADIA
--- NOTE | 2019-05-22 12:57 | MRI Report ---
Reason: BACK PAIN WITH RADICULOPATHY Procedure Date: 05/22/2019 Accession Number: [id number] / [id number] Procedure: MRI - Lumbar Spine W/O CPT Code: Final Report FULL RESULT: EXAM: MRI LUMBAR SPINE WITHOUT CONTRAST EXAM DATE: 05/22/2019 11:16 AM. CLINICAL HISTORY: Back pain with radiculopathy. COMPARISON: MRI LUMBAR SPINE W/O 09/05/2017 8:00 AM. MRI THORACIC SPINE W/O 05/22/2019 10:10 AM. MRI CERVICAL SPINE WITHOUT 05/22/2019 at 0918 hrs. XR LUMBAR SPINE 2 VIEW 11/12/2014 10:53 AM. TECHNIQUE: Multiplanar, multisequence T1-weighted and fluid-sensitive sequences of the lumbar spine from T12 to S1 without contrast. Other: None. FINDINGS: Spinal Canal: The conus terminates at T12. The conus medullaris is unremarkable. Crowding of cauda equina nerve roots is seen at L3-L4, L2-L3, and to a lesser extent L1-L2 levels. The spinal canal is congenitally shallow. Alignment: Mild, 2.5 mm, retrolisthesis is seen at L3-L4. Bone Marrow: Five [id number] lumbar vertebral bodies are assumed. No acute fracture. Disk space edema with adjacent endplate edema is seen centered at L3-L4. No significant paraspinous edema is present. Disk Levels/Facets: T12-L1: Unremarkable. Anterolateral osteophyte formation is seen greater to the right. L1-L2: Mild degenerative facet change is seen bilaterally. Minimal dorsal and mild lateral circumferential disk bulge is seen. Anterolateral osteophyte formation is seen greater to the right. Effacement of the thecal sac with crowding of cauda equina nerve roots is seen. Mild canal stenosis. L2-L3: Mild degenerative facet change is seen with moderate thickening of ligamentum flavum. Marked loss of disk space height. Diskogenic endplate irregularity and signal abnormality is seen. Anterolateral osteophyte formation is seen greater to the right. Minimal dorsal with mild to moderate lateral and ventral circumferential disk bulge. Effacement of thecal sac with crowding of cauda equina nerve roots is seen. Moderate canal stenosis. L3-L4: Mild degenerative facet change is seen with moderate thickening of ligamentum flavum. Disk space narrowing is present with diffuse disk space edema. Adjacent endplate irregularity and enhancement is seen. Mild retrolisthesis. Moderate anterior and lateral osteophyte formation. Effacement of the thecal sac with crowding of cauda equina nerve roots is seen. Marked canal stenosis. Effacement of exiting L3 nerve roots is seen bilaterally with moderate foraminal stenosis. L4-L5: Postoperative change from bilateral laminectomy and partial facetectomy is seen. Degenerative facet change is seen. Anterior thickening of the ligamentum flavum is noted extending into the posterior foramen. Moderate loss of disk space height is seen. Mild circumferential disk bulge. Effacement of exiting L4 nerve root is seen bilaterally with moderate foraminal stenosis. L5-S1: Postoperative change is seen dorsally from bilateral laminectomy and partial facetectomy. Degenerative facet change is seen with anterior thickening of ligamentum flavum extending into the posterior foramen. Loss of disk space height is seen. Lateral protrusion of disk/osteophyte complex is seen. Effacement of exited L5 nerve roots lateral to the foramen is noted. Moderate right lateral foraminal stenosis. Musculature: Fatty atrophy is seen involving posterior paraspinous musculature centered in the surgical bed posteriorly in the lower lumbar and upper sacral spine. Other: The partially visualized retroperitoneum is unremarkable. IMPRESSION: 1. Congenitally shallow lumbar spinal canal. Diffuse lumbar spondylosis. 2. L1-L2: Mild canal stenosis. 3. L2-L3: Moderate canal stenosis. 4. L3-L4: Marked canal stenosis. Bilateral moderate foraminal stenosis. 5. L4-L5: Postoperative change dorsally. Bilateral moderate foraminal stenosis. 6. L5-S1: Postoperative change dorsally. Right moderate lateral foraminal stenosis. 7. Disk space edema with surrounding bone marrow edema centered at L3-L4. No surrounding paraspinous edema is appreciated. Findings suggest diskogenic change. Early changes of diskitis/osteomyelitis are considered less likely. Comment: The following findings are so common in adults without low back pain that while we report their presence, they must be interpreted with caution and in the context of the clinical situation. (Reference Cheng et al, Spine 2001) Prevalence of findings in patients without low back pain: Disk degeneration (any evidence): 92% Disk desiccation/T2 signal loss: 83% Disk height loss: 56% Disk bulge: 64% Disk protrusion: 32% Annular tear/high intensity zone: 38% RADIA
== END 2019-05-22 08:54 | disposition home or self-care (01) ==
LOC: DI 08:53
PROVIDERS: ATTEND Family Medicine
DX: M43.22 Fusion of spine, cervical region (principal); M50.21 Other cervical disc displacement, high cervical region; M47.812 Spondylosis without myelopathy or radiculopathy, cervical region; M50.31 Other cervical disc degeneration, high cervical region; M48.02 Spinal stenosis, cervical region; M47.814 Spondylosis without myelopathy or radiculopathy, thoracic region; M51.34 Other intervertebral disc degeneration, thoracic region; M47.816 Spondylosis without myelopathy or radiculopathy, lumbar region; M47.817 Spondylosis without myelopathy or radiculopathy, lumbosacral region; M48.061 Spinal stenosis, lumbar region without neurogenic claudication; M48.07 Spinal stenosis, lumbosacral region; M51.36 Other intervertebral disc degeneration, lumbar region; M51.37 Other intervertebral disc degeneration, lumbosacral region; M43.16 Spondylolisthesis, lumbar region; R13.10 Dysphagia, unspecified; C34.90 Malignant neoplasm of unspecified part of unspecified bronchus or lung
CPT/HCPCS: 72141; 72146; 72148

== ENCOUNTER 2020-01-29 08:00 | Outpatient (CLI) | payer MEDICARE, OTHER ==
[2020-01-29 19:10] LABS: THYROID STIMULATING HORMONE 1.89 uIU/mL (0.34-5.60)
[2020-01-29 19:12] LABS: FREE T3 2.93 pg/mL (2.5-3.9); FREE T4 (FREE THYROXINE) 1.02 ng/dL (0.58-1.64)
== END 2020-01-29 23:59 | disposition home or self-care (01) ==
LOC: LAB.WCP 08:00
PROVIDERS: ATTEND Family Medicine
DX: E03.9 Hypothyroidism, unspecified (principal)
CPT/HCPCS: 36415; 84439; 84443; 84481